=== PATIENT | male | born 1970 | race Two or more races ===

== ENCOUNTER 2022-08-20 04:50 | Day surgery (SDC) | payer OTHER ==
[2022-08-15 11:12] VITALS: BMI 26.2
[2022-08-20 12:20] VITALS: BP 127/90; PULSE 72; RESP 18; TEMP 98
== END 2022-08-20 12:20 | disposition home or self-care (01) ==
LOC: JASU-ENDO 04:50
PROVIDERS: ATTEND Student in an Organized Health Care Education/Training Program
PROC: 0DB78ZX Excision of Stomach, Pylorus, Via Natural or Artificial Opening Endoscopic, Diagnostic (ICD-10-PCS; 2022-08-20)
PROC: 0DB68ZX Excision of Stomach, Via Natural or Artificial Opening Endoscopic, Diagnostic (ICD-10-PCS; principal; 2022-08-20 11:00)
DX: K29.50 Unspecified chronic gastritis without bleeding (principal)
CPT/HCPCS: 88305-TC; 88342-TC

== ENCOUNTER 2022-11-19 05:15 | Day surgery (SDC) | payer OTHER ==
[2022-10-28 11:43] VITALS: BMI 26.2
[2022-11-19 17:04] VITALS: TEMP 97.9
[2022-11-19 17:25] VITALS: RESP 18
[2022-11-19 17:30] VITALS: BP 120/62; PULSE 73
== END 2022-11-19 17:43 | disposition home or self-care (01) ==
LOC: JASU-ENDO 05:15
PROVIDERS: ATTEND Student in an Organized Health Care Education/Training Program
PROC: 0DJD8ZZ Inspection of Lower Intestinal Tract, Via Natural or Artificial Opening Endoscopic (ICD-10-PCS; principal; 2022-11-19 14:00)
DX: K64.0 First degree hemorrhoids (principal)